=== PATIENT | female | born 1940 | race Caucasian/White ===

== ENCOUNTER 2021-04-21 15:06 | Inpatient (IN) ==
[2021-04-21] MEDS ORDERED: *HR* FentaNYL (PF) 100 MCG/2 ML VIAL IVP ONE (16:07)
[2021-04-21] MEDS ORDERED: Ondansetron 4 MG/2 ML VIAL IVP ONE (16:26)
[2021-04-21] MEDS ORDERED: *HR* HYDROmorphone (PF) 1 MG/ML SYRINGE IVP ONE (18:06)
[2021-04-21 18:10] LABS: Hemoglobin 11.4 g/dL (11.5-15.4); Immature Platelets 6.9 % (1.1-6.1); Mean Corpuscular HGB Conc 33.5 g/dL (31.6-35.5); Mean Corpuscular Volume 95.5 fL (83.0-100.0); Red Blood Count 3.56 M/mcL (3.82-4.97); White Blood Count 6.6 K/mcL (4.3-11.1)
[2021-04-21 18:17] LABS: Bilirubin,Urine Negative (Negative); Blood,Urine Negative (Negative); Clarity,Urine Clear (Clear); Color,Urine Light-Yellow (Yellow); Glucose,Urine (UA) Normal (Normal); Ketones,Urine Negative (Negative); Leukocyte Esterase,Urine Small (Negative); Mucus,Urine Few per lpf (None-Few); Nitrite,Urine Positive (Negative); PH,Urine 6.5 pH Units (5.0-8.0); Protein,Urine Negative (Neg-Trace); RBC,Urine 0-3 per hpf (0-3); Specific Gravity,Urine 1.012 (1.010-1.025); Squamous Epithelial Cell,Urine Few per hpf (None-Few); Urobilinogen,Urine Normal (Normal); WBC,Urine 15-30 per hpf (0-3)
[2021-04-21 18:22] LABS: INR 1.1; Prothrombin Time 12.5 Seconds (9.4-12.1)
[2021-04-21 18:28] LABS: BUN/Creatinine Ratio 25 (6-26); Blood Urea Nitrogen 12 mg/dL (8-23); Calcium 9.2 mg/dL (8.6-10.3); Carbon Dioxide 29 mEq/L (23-29); Chloride 101 mEq/L (98-107); Glucose 95 mg/dL (70-105); Osmolality,Calculated 284 (280-300); Potassium 3.8 mEq/L (3.5-5.1); Sodium 137 mEq/L (136-145); eGFR For African Americans > 60 (> 60); eGFR For Non-African Americans > 60 (> 60)
[2021-04-21] MEDS ORDERED: *HR* Promethazine 25 MG/ML VIAL IM PRN (19:43)
[2021-04-21] MEDS ORDERED: Melatonin 3 MG TABLET PO PRN (19:43)
[2021-04-21] MEDS ORDERED: Naloxone 0.4 MG/ML INJ IVP PRN (19:43)
[2021-04-21] MEDS: Ketorolac 30 MG/ML VIAL IVP PRN (20:38)
[2021-04-21] MEDS: cefTRIAXone 1,000 MG in Water for inj. (sterile) 10 ML IVP SCH (22:31)
[2021-04-22 00:24] LABS: Adenovirus Not Detected (Not Detect); Bordetella Pertussis Not Detected (Not Detect); Chlamydophila pneumoniae Not Detected (Not Detect); Coronavirus 229E Not Detected (Not Detect); Coronavirus HKU1 Not Detected (Not Detect); Coronavirus NL63 Not Detected (Not Detect); Coronavirus OC43 Not Detected (Not Detect); Human Metapneumovirus Not Detected (Not Detect); Human Rhinovirus/Enterovirus Not Detected (Not Detect); Influenza A Subtype 2009 H1 Not Detected (Not Detect); Influenza B Not Detected (Not Detect); Mycoplasma pneumoniae Not Detected (Not Detect); Parainfluenza Virus 1 Not Detected (Not Detect); Parainfluenza Virus 2 Not Detected (Not Detect); Parainfluenza Virus 3 Not Detected (Not Detect); Parainfluenza Virus 4 Not Detected (Not Detect); Respiratory Syncytial Virus Not Detected (Not Detect); SARS-CoV-2 Not Detected (Not Detect)
[2021-04-22] MEDS: Ketorolac 30 MG/ML VIAL IVP PRN ×3 (02:48→17:59)
[2021-04-22 06:47] LABS: Basophils % 0.6 %; Eosinophils # 0.1 K/mcL (0.0-0.6); Eosinophils % 1.7 %; Hematocrit 31.4 % (35.3-44.9); Hemoglobin 10.5 g/dL (11.5-15.4); Immature Granulocytes % 0.4 % (0-4); Lymphocytes # 1.1 K/mcL (0.6-4.6); Lymphocytes % 15.2 %; Mean Corpuscular HGB Conc 33.4 g/dL (31.6-35.5); Mean Corpuscular Hemoglobin 31.7 pg (28.0-33.3); Mean Corpuscular Volume 94.9 fL (83.0-100.0); Mean Platelet Volume 11.3 fL (9.4-12.4); Monocytes # 0.7 K/mcL (0.0-1.3); Monocytes % 10.1 %; Platelet Count 171 K/mcL (140-400); Red Blood Count 3.31 M/mcL (3.82-4.97); Red Cell Distribution Width 11.9 % (11.5-14.5); White Blood Count 6.9 K/mcL (4.3-11.1)
[2021-04-22 07:09] LABS: BUN/Creatinine Ratio 30 (6-26); Blood Urea Nitrogen 13 mg/dL (8-23); Calcium 8.4 mg/dL (8.6-10.3); Carbon Dioxide 28 mEq/L (23-29); Chloride 98 mEq/L (98-107); Glucose 107 mg/dL (70-105); Osmolality,Calculated 279 (280-300); Potassium 3.7 mEq/L (3.5-5.1); Sodium 134 mEq/L (136-145); eGFR For African Americans > 60 (> 60); eGFR For Non-African Americans > 60 (> 60)
[2021-04-22] MEDS ORDERED: D5% in Water 1,000 ML IVC PRN (07:58)
[2021-04-22] MEDS ORDERED: Dextrose Gel 15 GM/37.5 ML TUBE PO PRN ×2 (07:58)
[2021-04-22] MEDS ORDERED: *HR* Dextrose 50 % in Water (Vial) 50 ML VIAL IVP PRN (07:58)
[2021-04-22] MEDS: cefTRIAXone 1,000 MG in Water for inj. (sterile) 10 ML IVP SCH (08:07)
[2021-04-22] MEDS: Aspirin Enteric Coated 81 MG Tablet PO SCH (10:33)
[2021-04-22] MEDS: Ondansetron 4 MG/2 ML VIAL IVP PRN ×2 (11:58→20:17)
[2021-04-22] MEDS: Gabapentin 300 MG CAPSULE PO SCH (20:17)
[2021-04-22] MEDS: Lactobacillus 1 EACH CAP.SPRINK PO SCH (20:17)
[2021-04-23 06:00] LABS: Hematocrit 32.1 % (35.3-44.9); Hemoglobin 10.5 g/dL (11.5-15.4); Mean Corpuscular HGB Conc 32.7 g/dL (31.6-35.5); Mean Corpuscular Hemoglobin 31.3 pg (28.0-33.3); Mean Corpuscular Volume 95.8 fL (83.0-100.0); Mean Platelet Volume 11.4 fL (9.4-12.4); Platelet Count 163 K/mcL (140-400); Red Blood Count 3.35 M/mcL (3.82-4.97); Red Cell Distribution Width 11.8 % (11.5-14.5); White Blood Count 10.2 K/mcL (4.3-11.1)
[2021-04-23 06:28] LABS: % Iron Saturation 7 % (15-50); BUN/Creatinine Ratio 31 (6-26); Blood Urea Nitrogen 15 mg/dL (8-23); Calcium 8.5 mg/dL (8.6-10.3); Carbon Dioxide 27 mEq/L (23-29); Chloride 97 mEq/L (98-107); Glucose 107 mg/dL (70-105); Iron 21 mcg/dL (50-170); Magnesium 2.2 mg/dL (1.6-2.6); Osmolality,Calculated 277 (280-300); Phosphorous 3.1 mg/dL (2.7-4.5); Potassium 3.5 mEq/L (3.5-5.1); Sodium 133 mEq/L (136-145); Transferrin 212 mg/dL (203-362); eGFR For African Americans > 60 (> 60); eGFR For Non-African Americans > 60 (> 60)
[2021-04-23 06:39] LABS: Ferritin 493 ng/mL (10-120)
[2021-04-23 06:46] LABS: Folate 19.1 ng/mL (3.0-16.0)
[2021-04-23] MEDS ORDERED: Iron Sucrose Complex 400 MG in 0.9 % Sodium Chloride 250 ML IVPB ONE (07:51)
[2021-04-23] MEDS: cefTRIAXone 1,000 MG in Water for inj. (sterile) 10 ML IVP SCH (08:44)
[2021-04-23] MEDS: Vitamin B Complex/Vit C/Vit E 1 EACH TABLET PO SCH (08:46)
[2021-04-23] MEDS: hydrOXYzine pamoate 25 MG CAPSULE PO SCH (08:46)
[2021-04-23] MEDS: Gabapentin 300 MG CAPSULE PO SCH ×2 (08:46→22:52)
[2021-04-23] MEDS: Lactobacillus 1 EACH CAP.SPRINK PO SCH ×2 (08:47→22:52)
[2021-04-23] MEDS: Calcium Gluconate 1gm/50mL 1 GM/50 ML BAG IVPB SCH (08:47)
[2021-04-23] MEDS ORDERED: Povidone-Iodine 45 ML, Sodium Chloride IRRigation 1,000 ML IR ONE (12:30)
[2021-04-23] MEDS ORDERED: TOTAL JOINT MIXTURE (100ML) INTRAART ONE (12:30)
[2021-04-23] MEDS ORDERED: *HR* FentaNYL (PF) 100 MCG/2 ML VIAL ONE (12:37)
[2021-04-23] MEDS ORDERED: *HR* Propofol 200 MG/20 ML VIAL IVP ONE (12:37)
[2021-04-23] MEDS ORDERED: *HR* Midazolam HCl 2 MG/2 ML VIAL ONE (12:37)
[2021-04-23] MEDS: Aspirin Enteric Coated 81 MG Tablet PO SCH ×2 (12:39)
[2021-04-23] MEDS ORDERED: *HR* FentaNYL (PF) 100 MCG/2 ML VIAL IVP PRN (12:47)
[2021-04-23] MEDS ORDERED: Ondansetron 4 MG/2 ML VIAL IVP PRN (12:47)
[2021-04-23] MEDS ORDERED: Albuterol 2.5 MG/3 ML NEBULIZER IH PRN (12:47)
[2021-04-23] MEDS ORDERED: Naloxone 0.4 MG/ML INJ IVP PRN (12:47)
[2021-04-23] MEDS ORDERED: *HR* HYDROmorphone (PF) 1 MG/ML SYRINGE IVP PRN (12:47)
[2021-04-23] MEDS ORDERED: Nitroglycerin 0.4 MG TAB.SUBL SL PRN (12:47)
[2021-04-23] MEDS ORDERED: Acetaminophen IV 1,000 MG/100 ML BAG IVPB ONE (12:58)
[2021-04-23] MEDS ORDERED: Lidocaine -MPF 2% 2 ML VIAL ONE (13:12)
[2021-04-23] MEDS ORDERED: Ondansetron 4 MG/2 ML VIAL ONE (13:12)
[2021-04-23] MEDS ORDERED: Lidocaine HCL 4 ML Topical Solution (Laryng-O-Jet Kit Sterile Pak) TP ONE (13:12)
[2021-04-23] MEDS ORDERED: *HR* Rocuronium Bromide 50 MG/5 ML VIAL ONE (13:12)
[2021-04-23] MEDS ORDERED: Heparin 1,000 UNITS/500 mL 500 ML ONE (14:38)
[2021-04-23] MEDS ORDERED: Sugammadex Sodium 200 MG/2 ML VIAL IV ONE (14:46)
[2021-04-23] MEDS ORDERED: Ringers Solution, Lactated 500 ML ONE (15:30)
[2021-04-24] MEDS: CeFAZolin 2 GM/120 ML BAG IVPB SCH ×3 (00:38→16:31)
[2021-04-24 03:06] LABS: Hematocrit 28.9 % (35.3-44.9); Hemoglobin 9.5 g/dL (11.5-15.4); Immature Platelets 8.1 % (1.1-6.1); Mean Corpuscular HGB Conc 32.9 g/dL (31.6-35.5); Mean Corpuscular Hemoglobin 31.4 pg (28.0-33.3); Mean Corpuscular Volume 95.4 fL (83.0-100.0); Mean Platelet Volume 11.2 fL (9.4-12.4); Red Blood Count 3.03 M/mcL (3.82-4.97); Red Cell Distribution Width 11.8 % (11.5-14.5); White Blood Count 9.1 K/mcL (4.3-11.1)
[2021-04-24 03:26] LABS: BUN/Creatinine Ratio 23 (6-26); Blood Urea Nitrogen 10 mg/dL (8-23); Calcium 8.4 mg/dL (8.6-10.3); Carbon Dioxide 27 mEq/L (23-29); Chloride 99 mEq/L (98-107); Glucose 128 mg/dL (70-105); Magnesium 2.2 mg/dL (1.6-2.6); Osmolality,Calculated 277 (280-300); Phosphorous 2.9 mg/dL (2.7-4.5); Potassium 4.3 mEq/L (3.5-5.1); Sodium 133 mEq/L (136-145); eGFR For African Americans > 60 (> 60); eGFR For Non-African Americans > 60 (> 60)
[2021-04-24] MEDS ORDERED: Ketorolac 15 MG/ML VIAL IM ONE (05:07)
[2021-04-24] MEDS: Gabapentin 300 MG CAPSULE PO SCH ×2 (07:45→20:05)
[2021-04-24] MEDS: Lactobacillus 1 EACH CAP.SPRINK PO SCH ×2 (07:45→20:05)
[2021-04-24] MEDS: Vitamin B Complex/Vit C/Vit E 1 EACH TABLET PO SCH (07:45)
[2021-04-24] MEDS: Aspirin Enteric Coated 81 MG Tablet PO SCH (07:45)
[2021-04-24] MEDS: hydrOXYzine pamoate 25 MG CAPSULE PO SCH (07:46)
[2021-04-24] MEDS: Ondansetron 4 MG/2 ML VIAL IVP PRN (07:48)
[2021-04-24] MEDS ORDERED: Iron Sucrose Complex 400 MG in 0.9 % Sodium Chloride 250 ML IVPB ONE (07:52)
[2021-04-24] MEDS: *HR* HYDROcodone/Acet 10/325 mg TABLET PO PRN ×2 (15:08→20:04)
[2021-04-24] MEDS: *HR* Rivaroxaban 10 MG TABLET PO SCH (16:30)
[2021-04-24] MEDS ORDERED: Cefdinir 300 MG CAPSULE PO SCH (21:00)
[2021-04-25] MEDS: CeFAZolin 2 GM/120 ML BAG IVPB SCH (00:07)
[2021-04-25] MEDS: *HR* HYDROcodone/Acet 10/325 mg TABLET PO PRN ×4 (00:13→22:44)
[2021-04-25] MEDS ORDERED: Acetaminophen IV 1,000 MG/100 ML BAG IVPB ONE (00:52)
[2021-04-25 01:57] LABS: Hematocrit 30.2 % (35.3-44.9); Hemoglobin 10.2 g/dL (11.5-15.4); Mean Corpuscular HGB Conc 33.8 g/dL (31.6-35.5); Mean Corpuscular Hemoglobin 32.4 pg (28.0-33.3); Mean Corpuscular Volume 95.9 fL (83.0-100.0); Mean Platelet Volume 11.2 fL (9.4-12.4); Platelet Count 157 K/mcL (140-400); Red Blood Count 3.15 M/mcL (3.82-4.97); Red Cell Distribution Width 11.8 % (11.5-14.5); White Blood Count 9.5 K/mcL (4.3-11.1)
[2021-04-25 02:19] LABS: BUN/Creatinine Ratio 24 (6-26); Blood Urea Nitrogen 11 mg/dL (8-23); Carbon Dioxide 28 mEq/L (23-29); Chloride 97 mEq/L (98-107); Potassium 3.4 mEq/L (3.5-5.1); Sodium 134 mEq/L (136-145); eGFR For African Americans > 60 (> 60)
[2021-04-25 02:20] LABS: Calcium 8.8 mg/dL (8.6-10.3); Glucose 132 mg/dL (70-105); Osmolality,Calculated 279 (280-300); Phosphorous 2.8 mg/dL (2.7-4.5); eGFR For Non-African Americans > 60 (> 60)
[2021-04-25] MEDS: Lactobacillus 1 EACH CAP.SPRINK PO SCH ×2 (08:22→20:50)
[2021-04-25] MEDS: Gabapentin 300 MG CAPSULE PO SCH ×2 (08:22→20:50)
[2021-04-25] MEDS: Vitamin B Complex/Vit C/Vit E 1 EACH TABLET PO SCH (08:22)
[2021-04-25] MEDS: hydrOXYzine pamoate 25 MG CAPSULE PO SCH (08:22)
[2021-04-25] MEDS: Aspirin Enteric Coated 81 MG Tablet PO SCH (08:23)
[2021-04-25] MEDS: *HR* Rivaroxaban 10 MG TABLET PO SCH (18:39)
[2021-04-25] MEDS: Cefdinir 300 MG CAPSULE PO SCH (20:50)
[2021-04-26 01:48] LABS: Hematocrit 27.7 % (35.3-44.9); Hemoglobin 9.3 g/dL (11.5-15.4); Mean Corpuscular HGB Conc 33.6 g/dL (31.6-35.5); Mean Corpuscular Hemoglobin 31.7 pg (28.0-33.3); Mean Corpuscular Volume 94.5 fL (83.0-100.0); Mean Platelet Volume 11.5 fL (9.4-12.4); Platelet Count 174 K/mcL (140-400); Red Blood Count 2.93 M/mcL (3.82-4.97); Red Cell Distribution Width 11.6 % (11.5-14.5); White Blood Count 7.8 K/mcL (4.3-11.1)
[2021-04-26 02:11] LABS: BUN/Creatinine Ratio 22 (6-26); Blood Urea Nitrogen 7 mg/dL (8-23); Calcium 8.5 mg/dL (8.6-10.3); Carbon Dioxide 29 mEq/L (23-29); Chloride 97 mEq/L (98-107); Glucose 121 mg/dL (70-105); Osmolality,Calculated 277 (280-300); Phosphorous 2.4 mg/dL (2.7-4.5); Potassium 3.7 mEq/L (3.5-5.1); Sodium 134 mEq/L (136-145); eGFR For African Americans > 60 (> 60); eGFR For Non-African Americans > 60 (> 60)
[2021-04-26] MEDS: *HR* HYDROcodone/Acet 10/325 mg TABLET PO PRN ×2 (02:44→07:29)
[2021-04-26] MEDS: Calcium Gluconate 1gm/50mL 1 GM/50 ML BAG IVPB SCH (03:24)
[2021-04-26] MEDS ORDERED: Calcium Gluconate 1gm/50mL 1 GM/50 ML BAG IVPB SCH (09:00)
[2021-04-26] MEDS: Gabapentin 300 MG CAPSULE PO SCH (11:21)
[2021-04-26] MEDS: Lactobacillus 1 EACH CAP.SPRINK PO SCH (11:21)
[2021-04-26] MEDS: Aspirin Enteric Coated 81 MG Tablet PO SCH (11:21)
[2021-04-26] MEDS: Cefdinir 300 MG CAPSULE PO SCH (11:21)
[2021-04-26] MEDS: hydrOXYzine pamoate 25 MG CAPSULE PO SCH (11:22)
[2021-04-26] MEDS: Vitamin B Complex/Vit C/Vit E 1 EACH TABLET PO SCH (11:22)
[2021-04-26] MEDS ORDERED: *HR* Rivaroxaban 15 MG TABLET PO SCH (11:30)
[2021-04-26 15:01] VITALS: BP 160/77; PULSE 94; TEMP 99.4; O2SAT 94
[2021-04-26 16:07] LABS: Influenza A PCR Negative (Negative); Influenza B PCR Negative (Negative); Resp. Syncytial Virus PCR Negative (Negative); SARS-CoV-2 by PCR (In House) Negative (Negative)
== END 2021-04-26 18:01 | disposition other institution (70) | DRG 481 ==
LOC: 3NENU 15:06 → EMEROOARM 15:06 → SUATTDRO 19:19 → 3NENU 20:19
PROVIDERS: ADMIT Internal Medicine; ATTEND Internal Medicine

== ENCOUNTER 2021-05-07 10:51 | Inpatient (IN) ==
[2021-05-07] MEDS ORDERED: 0.9 % Sodium Chloride 1,000 ML IVC ONE (10:59)
[2021-05-07 11:48] LABS: Mean Corpuscular Hemoglobin 32.2 pg (28.0-33.3)
[2021-05-07 11:49] LABS: Hematocrit 16.8 % (35.3-44.9); Mean Corpuscular HGB Conc 32.7 g/dL (31.6-35.5); Mean Corpuscular Volume 98.2 fL (83.0-100.0); Mean Platelet Volume 11.2 fL (9.4-12.4); Platelet Count 283 K/mcL (140-400); Red Blood Count 1.71 M/mcL (3.82-4.97); Red Cell Distribution Width 13.3 % (11.5-14.5); White Blood Count 16.2 K/mcL (4.3-11.1)
[2021-05-07 11:52] LABS: Hemoglobin 5.5 g/dL (11.5-15.4)
[2021-05-07 12:06] LABS: Lymphocytes # 1.6 K/mcL (0.6-4.6); Neutrophils # 13.6 K/mcL (1.6-8.9)
[2021-05-07 12:07] LABS: Anisocytosis 1+ (Not Present); Platelet Estimate Normal (Normal)
[2021-05-07 12:16] LABS: Bilirubin,Urine Negative (Negative); Blood,Urine Negative (Negative); Clarity,Urine Clear (Clear); Color,Urine Light-Yellow (Yellow); Glucose,Urine (UA) Normal (Normal); Ketones,Urine Trace mg/dL (Negative); Leukocyte Esterase,Urine Negative (Negative); Nitrite,Urine Negative (Negative); PH,Urine 5.5 pH Units (5.0-8.0); Protein,Urine Negative (Neg-Trace); Specific Gravity,Urine 1.022 (1.010-1.025); Urobilinogen,Urine Normal (Normal)
[2021-05-07 13:00] LABS: Alanine Aminotransferase 12 Units/L (7-52); Albumin 3.6 g/dL (3.5-5.7); Albumin/Globulin Ratio 1.4 (1.1-2.2); Alkaline Phosphatase 60 Units/L (34-104); Aspartate Amino Transferase 22 Units/L (13-39); BUN/Creatinine Ratio 49 (6-26); Bilirubin,Total 0.6 mg/dL (0.3-1.0); Blood Urea Nitrogen 25 mg/dL (8-23); Calcium 8.8 mg/dL (8.6-10.3); Carbon Dioxide 20 mEq/L (23-29); Chloride 101 mEq/L (98-107); Creatine Kinase 82 Units/L (30-223); Globulin 2.5 g/dL (2.4-3.5); Glucose 146 mg/dL (70-105); Osmolality,Calculated 287 (280-300); Sodium 135 mEq/L (136-145); Total Protein 6.1 g/dL (6.4-8.9); Troponin I < 0.03 ng/mL (< 0.04); eGFR For African Americans > 60 (> 60); eGFR For Non-African Americans > 60 (> 60)
[2021-05-07] MEDS ORDERED: 0.9 % Sodium Chloride 250 ML ONE (13:14)
[2021-05-07] MEDS ORDERED: Pantoprazole 40 MG VIAL IVP ONE (13:35)
[2021-05-07] MEDS ORDERED: Naloxone 0.4 MG/ML INJ IVP PRN (13:55)
[2021-05-07] MEDS ORDERED: Ondansetron ODT 4 MG TAB.RAPDIS SL PRN (13:55)
[2021-05-07] MEDS ORDERED: Acetaminophen 325 MG TABLET PO PRN (14:00)
[2021-05-07] MEDS ORDERED: D5% in Water 1,000 ML IVC PRN (14:15)
[2021-05-07] MEDS ORDERED: Dextrose Gel 15 GM/37.5 ML TUBE PO PRN ×2 (14:15)
[2021-05-07] MEDS ORDERED: *HR* Dextrose 50 % in Water (Vial) 50 ML VIAL IVP PRN (14:15)
[2021-05-07 16:23] LABS: Folate > 22.3 ng/mL (3.0-16.0); Vitamin B12 770 pg/mL (250-1100)
[2021-05-07] MEDS ORDERED: SODIUM CHLORIDE/NAHCO3/KCL/PEG 4,000 ML SOLN.RECON PO ONE (17:00)
[2021-05-07] MEDS: Ringers Solution, Lactated 1,000 ML IVC SCH (17:42)
[2021-05-07] MEDS: Pantoprazole 40 MG VIAL IVP SCH (17:42)
[2021-05-07] MEDS: Insulin LISPRO 300 UNITS/3 ML VIAL SUBQ SCH ×2 (18:05→20:02)
[2021-05-07 19:15] LABS: Hematocrit 21.8 % (35.3-44.9)
[2021-05-07 19:19] LABS: Hemoglobin 7.3 g/dL (11.5-15.4)
[2021-05-07 19:31] LABS: INR 1.5; Prothrombin Time 16.6 Seconds (9.4-12.1)
[2021-05-07 19:34] LABS: Activated Partial Thrombo Time 28.8 Seconds (26.0-36.0)
[2021-05-07] MEDS: *HR* HYDROcodone/Acet 5/325 mg TABLET PO PRN (23:01)
[2021-05-07 23:20] LABS: Hemoglobin 6.8 g/dL (11.5-15.4)
[2021-05-08] MEDS: Insulin LISPRO 300 UNITS/3 ML VIAL SUBQ SCH ×5 (00:36→21:13)
[2021-05-08] MEDS: Ringers Solution, Lactated 1,000 ML IVC SCH ×2 (02:31→10:50)
[2021-05-08 03:20] LABS: BUN/Creatinine Ratio 72 (6-26); Blood Urea Nitrogen 18 mg/dL (8-23); Calcium 7.6 mg/dL (8.6-10.3); Carbon Dioxide 22 mEq/L (23-29); Chloride 105 mEq/L (98-107); Glucose 97 mg/dL (70-105); Osmolality,Calculated 278 (280-300); Potassium 3.4 mEq/L (3.5-5.1); Sodium 133 mEq/L (136-145); eGFR For African Americans > 60 (> 60); eGFR For Non-African Americans > 60 (> 60)
[2021-05-08] MEDS: *HR* HYDROcodone/Acet 5/325 mg TABLET PO PRN ×2 (04:51→20:10)
[2021-05-08] MEDS: Pantoprazole 40 MG VIAL IVP SCH ×2 (04:52→17:48)
[2021-05-08] MEDS ORDERED: Potassium Chloride 40 MEQ, Lidocaine 1% 2 ML in 0.9 % Sodium Chloride 500 ML IVPB ONE (07:36)
[2021-05-08] MEDS ORDERED: Calcium Gluconate 1gm/50mL 1 GM/50 ML BAG IVPB ONE (07:37)
[2021-05-08] MEDS: hydrOXYzine pamoate 25 MG CAPSULE PO SCH (08:07)
[2021-05-08] MEDS ORDERED: Pantoprazole 40 MG VIAL IVP SCH (09:00)
[2021-05-08 09:06] LABS: Basophils # 0.1 K/mcL (0.0-0.2); Basophils % 0.5 %; Eosinophils % 0.2 %; Hematocrit 18.5 % (35.3-44.9); Hemoglobin 6.4 g/dL (11.5-15.4); Immature Granulocytes % 2.8 % (0-4); Lymphocytes # 1.8 K/mcL (0.6-4.6); Lymphocytes % 14.3 %; Mean Corpuscular HGB Conc 34.6 g/dL (31.6-35.5); Mean Corpuscular Volume 92.5 fL (83.0-100.0); Mean Platelet Volume 10.9 fL (9.4-12.4); Monocytes # 1.2 K/mcL (0.0-1.3); Monocytes % 9.5 %; Neutrophils # 9.3 K/mcL (1.6-8.9); Nucleated Red Blood Cells 0.4 /100 WBC (0); Platelet Count 215 K/mcL (140-400); Red Cell Distribution Width 15.2 % (11.5-14.5); Segmented Neutrophils % 72.7 %; White Blood Count 12.8 K/mcL (4.3-11.1)
[2021-05-08] MEDS ORDERED: 0.9 % Sodium Chloride 250 ML ONE ×2 (12:11→21:10)
[2021-05-08] MEDS ORDERED: *HR* Propofol 200 MG/20 ML VIAL IVP ONE ×3 (12:43→13:54)
[2021-05-08] MEDS ORDERED: Lidocaine -MPF 2% 2 ML VIAL ONE (12:47)
[2021-05-08] MEDS ORDERED: Ondansetron 4 MG/2 ML VIAL ONE (13:59)
[2021-05-08] MEDS ORDERED: SODIUM CHLORIDE/NAHCO3/KCL/PEG 4,000 ML SOLN.RECON PO ONE (17:00)
[2021-05-08 17:54] LABS: Hematocrit 19.1 % (35.3-44.9); Hemoglobin 6.6 g/dL (11.5-15.4)
[2021-05-09] MEDS: Insulin LISPRO 300 UNITS/3 ML VIAL SUBQ SCH ×6 (01:00→21:54)
[2021-05-09 05:42] LABS: Hematocrit 21.1 % (35.3-44.9); Hemoglobin 7.3 g/dL (11.5-15.4); Mean Corpuscular HGB Conc 34.6 g/dL (31.6-35.5); Mean Corpuscular Hemoglobin 30.8 pg (28.0-33.3); Mean Platelet Volume 10.4 fL (9.4-12.4); Platelet Count 168 K/mcL (140-400); Red Blood Count 2.37 M/mcL (3.82-4.97); Red Cell Distribution Width 15.3 % (11.5-14.5)
[2021-05-09] MEDS: Ringers Solution, Lactated 1,000 ML IVC SCH ×2 (05:55→05:56)
[2021-05-09 06:01] LABS: BUN/Creatinine Ratio 35 (6-26); Blood Urea Nitrogen 9 mg/dL (8-23); Calcium 7.5 mg/dL (8.6-10.3); Carbon Dioxide 25 mEq/L (23-29); Chloride 100 mEq/L (98-107); Glucose 102 mg/dL (70-105); Osmolality,Calculated 273 (280-300); Potassium 2.8 mEq/L (3.5-5.1); Sodium 132 mEq/L (136-145); eGFR For African Americans > 60 (> 60); eGFR For Non-African Americans > 60 (> 60)
[2021-05-09] MEDS: Pantoprazole 40 MG VIAL IVP SCH ×2 (06:11→18:09)
[2021-05-09] MEDS ORDERED: Potassium Chloride Elixir 20 MEQ/15 ML UDC PO ONE (07:18)
[2021-05-09] MEDS ORDERED: Potassium Chloride 20 MEQ, Lidocaine 1% 2 ML in 0.9 % Sodium Chloride 250 ML IVPB ONE (07:18)
[2021-05-09] MEDS ORDERED: 0.9 % Sodium Chloride 1,000 ML IVC SCH ×2 (07:30)
[2021-05-09 07:58] LABS: Magnesium 1.6 mg/dL (1.6-2.6)
[2021-05-09] MEDS: hydrOXYzine pamoate 25 MG CAPSULE PO SCH (08:53)
[2021-05-09 17:20] LABS: Hematocrit 21.8 % (35.3-44.9); Hemoglobin 7.5 g/dL (11.5-15.4)
[2021-05-09] MEDS: *HR* HYDROcodone/Acet 5/325 mg TABLET PO PRN (18:09)
[2021-05-10] MEDS: *HR* HYDROcodone/Acet 5/325 mg TABLET PO PRN ×2 (01:43→21:39)
[2021-05-10 02:26] LABS: Hemoglobin 6.8 g/dL (11.5-15.4); Mean Corpuscular Hemoglobin 31.3 pg (28.0-33.3); Mean Corpuscular Volume 92.2 fL (83.0-100.0); Mean Platelet Volume 10.8 fL (9.4-12.4); Platelet Count 192 K/mcL (140-400); Red Blood Count 2.17 M/mcL (3.82-4.97); White Blood Count 7.9 K/mcL (4.3-11.1)
[2021-05-10 02:40] LABS: BUN/Creatinine Ratio 39 (6-26); Blood Urea Nitrogen 9 mg/dL (8-23); Calcium 7.9 mg/dL (8.6-10.3); Carbon Dioxide 26 mEq/L (23-29); Chloride 102 mEq/L (98-107); Glucose 109 mg/dL (70-105); Osmolality,Calculated 279 (280-300); Sodium 135 mEq/L (136-145); eGFR For African Americans > 60 (> 60); eGFR For Non-African Americans > 60 (> 60)
[2021-05-10] MEDS ORDERED: 0.9 % Sodium Chloride 250 ML IVC SCH (03:00)
[2021-05-10] MEDS: Pantoprazole 40 MG VIAL IVP SCH ×2 (05:57→18:02)
[2021-05-10 06:55] LABS: Hematocrit 23.6 % (35.3-44.9)
[2021-05-10] MEDS ORDERED: Lidocaine -MPF 2% 5 ML VIAL SQ ONE (09:02)
[2021-05-10] MEDS ORDERED: *HR* Propofol 200 MG/20 ML VIAL IVP ONE (09:02)
[2021-05-10] MEDS: hydrOXYzine pamoate 25 MG CAPSULE PO SCH (09:37)
[2021-05-10] MEDS: Insulin LISPRO 300 UNITS/3 ML VIAL SUBQ SCH ×4 (09:37→21:11)
[2021-05-10 13:12] LABS: Hematocrit 26.3 % (35.3-44.9); Hemoglobin 8.7 g/dL (11.5-15.4)
[2021-05-10] MEDS ORDERED: Potassium Chloride 40 MEQ, Lidocaine 1% 2 ML in 0.9 % Sodium Chloride 500 ML IVPB ONE (14:10)
[2021-05-10 15:56] LABS: Estimated Average Glucose 103 mg/dl; Hemoglobin A1C 5.2 %
[2021-05-10 22:03] LABS: Hematocrit 26.5 % (35.3-44.9); Hemoglobin 8.9 g/dL (11.5-15.4)
[2021-05-11 01:27] LABS: Basophils # 0.1 K/mcL (0.0-0.2); Basophils % 0.5 %; Eosinophils # 0.1 K/mcL (0.0-0.6); Hematocrit 24.6 % (35.3-44.9); Hemoglobin 8.2 g/dL (11.5-15.4); Immature Granulocytes % 1.5 % (0-4); Lymphocytes # 1.5 K/mcL (0.6-4.6); Lymphocytes % 14.7 %; Mean Corpuscular HGB Conc 33.3 g/dL (31.6-35.5); Mean Corpuscular Hemoglobin 30.7 pg (28.0-33.3); Mean Corpuscular Volume 92.1 fL (83.0-100.0); Mean Platelet Volume 10.4 fL (9.4-12.4); Monocytes # 1.2 K/mcL (0.0-1.3); Monocytes % 11.8 %; Nucleated Red Blood Cells 0.2 /100 WBC (0); Platelet Count 225 K/mcL (140-400); Red Blood Count 2.67 M/mcL (3.82-4.97); Red Cell Distribution Width 16.7 % (11.5-14.5); Segmented Neutrophils % 70.5 %; White Blood Count 9.9 K/mcL (4.3-11.1)
[2021-05-11 01:46] LABS: BUN/Creatinine Ratio 22 (6-26); Blood Urea Nitrogen 5 mg/dL (8-23); Calcium 8.2 mg/dL (8.6-10.3); Carbon Dioxide 27 mEq/L (23-29); Chloride 99 mEq/L (98-107); Glucose 100 mg/dL (70-105); Osmolality,Calculated 275 (280-300); Sodium 134 mEq/L (136-145); eGFR For African Americans > 60 (> 60); eGFR For Non-African Americans > 60 (> 60)
[2021-05-11] MEDS: Pantoprazole 40 MG VIAL IVP SCH ×2 (06:17→17:23)
[2021-05-11] MEDS: hydrOXYzine pamoate 25 MG CAPSULE PO SCH (09:54)
[2021-05-11] MEDS: Insulin LISPRO 300 UNITS/3 ML VIAL SUBQ SCH (10:03)
[2021-05-11] MEDS ORDERED: Potassium Chloride 40 MEQ, Lidocaine 1% 2 ML in 0.9 % Sodium Chloride 500 ML IVPB ONE (13:27)
[2021-05-11] MEDS ORDERED: *HR* Propofol 200 MG/20 ML VIAL IVP ONE ×3 (13:33→14:06)
[2021-05-11] MEDS ORDERED: Lidocaine -MPF 2% 5 ML VIAL ONE (13:33)
[2021-05-11 15:12] LABS: Magnesium 1.6 mg/dL (1.6-2.6)
[2021-05-11] MEDS: *HR* HYDROcodone/Acet 5/325 mg TABLET PO PRN (17:23)
[2021-05-11 18:38] LABS: Hematocrit 25.3 % (35.3-44.9); Hemoglobin 8.7 g/dL (11.5-15.4)
[2021-05-12] MEDS: *HR* HYDROcodone/Acet 5/325 mg TABLET PO PRN ×2 (00:33→17:01)
[2021-05-12 01:48] LABS: Basophils % 0.4 %; Eosinophils # 0.1 K/mcL (0.0-0.6); Eosinophils % 1.1 %; Hematocrit 24.7 % (35.3-44.9); Hemoglobin 8.1 g/dL (11.5-15.4); Immature Granulocytes % 0.6 % (0-4); Lymphocytes # 1.2 K/mcL (0.6-4.6); Lymphocytes % 15.2 %; Mean Corpuscular HGB Conc 32.8 g/dL (31.6-35.5); Mean Corpuscular Hemoglobin 30.8 pg (28.0-33.3); Mean Corpuscular Volume 93.9 fL (83.0-100.0); Mean Platelet Volume 10.6 fL (9.4-12.4); Neutrophils # 5.5 K/mcL (1.6-8.9); Platelet Count 254 K/mcL (140-400); Red Blood Count 2.63 M/mcL (3.82-4.97); Red Cell Distribution Width 17.1 % (11.5-14.5); Segmented Neutrophils % 69.7 %; White Blood Count 7.9 K/mcL (4.3-11.1)
[2021-05-12 02:07] LABS: BUN/Creatinine Ratio 14 (6-26); Blood Urea Nitrogen 6 mg/dL (8-23); Calcium 8.2 mg/dL (8.6-10.3); Carbon Dioxide 28 mEq/L (23-29); Chloride 98 mEq/L (98-107); Glucose 110 mg/dL (70-105); Osmolality,Calculated 276 (280-300); Potassium 3.6 mEq/L (3.5-5.1); Sodium 134 mEq/L (136-145); eGFR For African Americans > 60 (> 60); eGFR For Non-African Americans > 60 (> 60)
[2021-05-12] MEDS: Pantoprazole 40 MG VIAL IVP SCH ×2 (06:06→16:55)
[2021-05-12] MEDS: hydrOXYzine pamoate 25 MG CAPSULE PO SCH (09:00)
[2021-05-12 14:43] LABS: Basophils % 0.3 %; Eosinophils # 0.1 K/mcL (0.0-0.6); Hematocrit 24.7 % (35.3-44.9); Hemoglobin 8.1 g/dL (11.5-15.4); Immature Granulocytes % 0.6 % (0-4); Lymphocytes % 14.8 %; Mean Corpuscular HGB Conc 32.8 g/dL (31.6-35.5); Mean Corpuscular Hemoglobin 31.2 pg (28.0-33.3); Mean Platelet Volume 10.9 fL (9.4-12.4); Monocytes % 14.2 %; Neutrophils # 4.8 K/mcL (1.6-8.9); Platelet Count 253 K/mcL (140-400); Segmented Neutrophils % 69.1 %
[2021-05-12 15:29] LABS: BUN/Creatinine Ratio 15 (6-26); Blood Urea Nitrogen 6 mg/dL (8-23); Calcium 8.4 mg/dL (8.6-10.3); Carbon Dioxide 29 mEq/L (23-29); Chloride 100 mEq/L (98-107); Glucose 148 mg/dL (70-105); Osmolality,Calculated 276 (280-300); Potassium 4.6 mEq/L (3.5-5.1); Sodium 133 mEq/L (136-145); eGFR For African Americans > 60 (> 60); eGFR For Non-African Americans > 60 (> 60)
[2021-05-12 23:52] VITALS: O2SAT 97
[2021-05-13] MEDS: Pantoprazole 40 MG VIAL IVP SCH (06:32)
[2021-05-13 08:00] VITALS: BP 134/70; PULSE 80; TEMP 97.8
[2021-05-13] MEDS: hydrOXYzine pamoate 25 MG CAPSULE PO SCH (09:12)
[2021-05-13] MEDS: *HR* HYDROcodone/Acet 5/325 mg TABLET PO PRN (09:30)
== END 2021-05-13 11:41 | disposition home or self-care (01) | DRG 378 ==
LOC: EMEROOARM 10:51 → 2ANU 10:51 → SUATTDRO 05-08 15:15
PROVIDERS: ADMIT Family Medicine; ATTEND Internal Medicine
PROC: ENDOCCB (2021-05-08 08:00)

== ENCOUNTER 2021-07-09 08:49 | Inpatient (IN) ==
[2021-07-09] MEDS ORDERED: *HR* HYDROmorphone (PF) 1 MG/ML SYRINGE IVP ONE (09:58)
[2021-07-09 10:39] LABS: Basophils % 0.2 %; Eosinophils % 0.1 %; Hematocrit 37.7 % (35.3-44.9); Hemoglobin 12.4 g/dL (11.5-15.4); Immature Granulocytes % 0.5 % (0-4); Lymphocytes % 7.8 %; Mean Corpuscular HGB Conc 32.9 g/dL (31.6-35.5); Mean Corpuscular Volume 91.3 fL (83.0-100.0); Mean Platelet Volume 11.3 fL (9.4-12.4); Monocytes # 0.8 K/mcL (0.0-1.3); Monocytes % 6.2 %; Neutrophils # 10.6 K/mcL (1.6-8.9); Platelet Count 208 K/mcL (140-400); Red Blood Count 4.13 M/mcL (3.82-4.97); Red Cell Distribution Width 13.4 % (11.5-14.5); Segmented Neutrophils % 85.2 %; White Blood Count 12.5 K/mcL (4.3-11.1)
[2021-07-09 10:54] LABS: BUN/Creatinine Ratio 33 (6-26); Blood Urea Nitrogen 12 mg/dL (8-23); C-Reactive Protein 14 mg/L (Less than 10); Calcium 9.3 mg/dL (8.6-10.3); Carbon Dioxide 27 mEq/L (23-29); Chloride 97 mEq/L (98-107); Glucose 115 mg/dL (70-105); Osmolality,Calculated 279 (280-300); Potassium 3.2 mEq/L (3.5-5.1); Sodium 134 mEq/L (136-145); eGFR For African Americans > 60 (> 60); eGFR For Non-African Americans > 60 (> 60)
[2021-07-09] MEDS ORDERED: *HR* HYDROmorphone 2 MG/ML SYRINGE IVP ONE (11:39)
[2021-07-09] MEDS ORDERED: Ibuprofen 400 MG TABLET PO PRN (12:15)
[2021-07-09] MEDS ORDERED: Ondansetron ODT 4 MG TAB.RAPDIS SL PRN ×2 (12:15→22:44)
[2021-07-09] MEDS ORDERED: Melatonin 3 MG TABLET PO PRN ×2 (12:15→22:44)
[2021-07-09] MEDS ORDERED: Mag Hydrox/Al Hydrox/Simeth 30 ML UDC PO PRN ×2 (12:15→22:44)
[2021-07-09] MEDS ORDERED: Naloxone 0.4 MG/ML INJ IVP PRN ×3 (12:15→22:44)
[2021-07-09] MEDS ORDERED: *HR* HYDROmorphone (PF) 1 MG/ML SYRINGE IVP PRN (12:17)
[2021-07-09] MEDS ORDERED: Famotidine 20 MG/2 ML VIAL IVP ONE ×3 (12:55→22:44)
[2021-07-09] MEDS ORDERED: Acetaminophen IV 1,000 MG/100 ML BAG IVPB ONE (13:30)
[2021-07-09] MEDS ORDERED: Heparin 1,000 UNITS/500 mL 500 ML ONE (14:37)
[2021-07-09] MEDS ORDERED: *HR* Propofol 200 MG/20 ML VIAL IVP ONE ×2 (15:06→19:16)
[2021-07-09] MEDS ORDERED: *HR* FentaNYL (PF) 100 MCG/2 ML VIAL ONE ×3 (15:06→19:00)
[2021-07-09] MEDS ORDERED: *HR* Rocuronium Bromide 50 MG/5 ML VIAL ONE ×2 (15:07→19:56)
[2021-07-09] MEDS ORDERED: Lidocaine -MPF 2% 5 ML VIAL ONE ×2 (15:07→15:38)
[2021-07-09] MEDS ORDERED: Lidocaine HCL 4 ML Topical Solution (Laryng-O-Jet Kit Sterile Pak) TP ONE (15:07)
[2021-07-09] MEDS ORDERED: Ondansetron 4 MG/2 ML VIAL ONE (15:07)
[2021-07-09] MEDS ORDERED: *HR* Etomidate 40 MG/20 ML VIAL IVP ONE (15:08)
[2021-07-09] MEDS ORDERED: EPHEDrine 50 MG/ML VIAL ONE (15:12)
[2021-07-09] MEDS ORDERED: Albumin Human 5% 12.5 GM/250 ML IV.SOLN ONE (15:16)
[2021-07-09] MEDS ORDERED: Povidone-Iodine 45 ML, Sodium Chloride IRRigation 1,000 ML IR ONE (15:30)
[2021-07-09] MEDS ORDERED: TOTAL JOINT MIXTURE (100ML) INTRAART ONE (15:30)
[2021-07-09] MEDS ORDERED: *HR* Phenylephrine 10 MG/ML VIAL ONE (15:30)
[2021-07-09] MEDS ORDERED: *HR* Remifentanil 1 MG VIAL IVP ONE ×2 (15:33→18:34)
[2021-07-09] MEDS ORDERED: Vancomycin 1,000 MG VIAL ONE (15:33)
[2021-07-09] MEDS ORDERED: *HR* Vasopressin 20 UNIT/ML VIAL ONE (15:37)
[2021-07-09] MEDS ORDERED: CeFAZolin Syr 2,000MG/20 ML 2,000 MG/20 ML SYRINGE IVPB ONE (15:43)
[2021-07-09] MEDS ORDERED: Ringers Solution, Lactated 1,000 ML IVC SCH (15:45)
[2021-07-09] MEDS ORDERED: Ethanol\\Acetic Acid\\Na Ace\\Ben 1,000 ML IRRIG.SOLN IR ONE (16:03)
[2021-07-09] MEDS ORDERED: Gentamicin 80 MG/2 ML VIAL IVPB ONE (16:13)
[2021-07-09] MEDS ORDERED: Gentamicin 300 MG in 0.9 % Sodium Chloride 100 ML IVPB ONE (16:30)
[2021-07-09] MEDS ORDERED: *HR* HYDROMORPHONE 2 MG/ML VIAL ONE ×2 (17:00→20:19)
[2021-07-09] MEDS ORDERED: Tranexamic Acid 1,000 MG/10 ML VIAL ONE ×2 (17:01→20:13)
[2021-07-09] MEDS ORDERED: *HR* HYDROmorphone PF 0.5 MG/0.5 ML SYRINGE IVP PRN ×2 (19:40→22:44)
[2021-07-09] MEDS ORDERED: Ondansetron 4 MG/2 ML VIAL IVP PRN ×2 (19:40→22:44)
[2021-07-09] MEDS ORDERED: Sugammadex Sodium 200 MG/2 ML VIAL IV ONE ×2 (20:26→20:32)
[2021-07-09] MEDS ORDERED: Gabapentin 300 MG CAPSULE PO SCH (21:00)
[2021-07-09 21:53] LABS: Hemoglobin 10.9 g/dL (11.5-15.4)
[2021-07-09] MEDS ORDERED: Fluorescein Sodium STRIP OP ONE (22:13)
[2021-07-09] MEDS ORDERED: *HR* Promethazine 25 MG/ML VIAL IM PRN (22:44)
[2021-07-09] MEDS ORDERED: MOM Conc 10 ML UD.LIQ PO PRN (22:44)
[2021-07-09] MEDS ORDERED: Sennosides 8.6 MG TABLET PO PRN (22:44)
[2021-07-10] MEDS: Ringers Solution, Lactated 1,000 ML IVC SCH ×3 (00:11→08:32)
[2021-07-10] MEDS: CeFAZolin 2 GM/120 ML BAG IVPB SCH ×4 (01:10→23:44)
[2021-07-10] MEDS: Multivit/Ca/Min/Fe/FA 1 TAB TABLET PO SCH (08:22)
[2021-07-10] MEDS: Gabapentin 300 MG CAPSULE PO SCH ×2 (08:23→21:14)
[2021-07-10] MEDS: Ascorbic Acid 500 MG TABLET PO SCH ×2 (08:23→16:06)
[2021-07-10] MEDS: *HR* OxyCODONE Immed Rel 5 MG TABLET PO PRN ×3 (08:23→23:44)
[2021-07-10 11:22] LABS: Hematocrit 29.6 % (35.3-44.9); Hemoglobin 9.7 g/dL (11.5-15.4); Mean Corpuscular HGB Conc 32.8 g/dL (31.6-35.5); Mean Corpuscular Hemoglobin 30.8 pg (28.0-33.3); Mean Platelet Volume 11.1 fL (9.4-12.4); Platelet Count 182 K/mcL (140-400); Red Blood Count 3.15 M/mcL (3.82-4.97); Red Cell Distribution Width 13.6 % (11.5-14.5); White Blood Count 13.1 K/mcL (4.3-11.1)
[2021-07-10 12:08] LABS: BUN/Creatinine Ratio 24 (6-26); Blood Urea Nitrogen 11 mg/dL (8-23); Calcium 8.4 mg/dL (8.6-10.3); Carbon Dioxide 26 mEq/L (23-29); Chloride 98 mEq/L (98-107); Glucose 113 mg/dL (70-105); Osmolality,Calculated 276 (280-300); Potassium 3.3 mEq/L (3.5-5.1); Sodium 133 mEq/L (136-145); eGFR For African Americans > 60 (> 60); eGFR For Non-African Americans > 60 (> 60)
[2021-07-10] MEDS: *HR* HYDROmorphone 2 MG/ML SYRINGE IVP PRN ×2 (16:06→21:16)
[2021-07-11 04:53] LABS: BUN/Creatinine Ratio 36 (6-26); Blood Urea Nitrogen 12 mg/dL (8-23); Carbon Dioxide 26 mEq/L (23-29); Chloride 100 mEq/L (98-107); Glucose 107 mg/dL (70-105); Magnesium 1.9 mg/dL (1.6-2.6); Osmolality,Calculated 278 (280-300); Potassium 3.6 mEq/L (3.5-5.1); Sodium 134 mEq/L (136-145); eGFR For African Americans > 60 (> 60); eGFR For Non-African Americans > 60 (> 60)
[2021-07-11] MEDS: *HR* HYDROmorphone 2 MG/ML SYRINGE IVP PRN ×4 (05:56→20:37)
[2021-07-11] MEDS: Ringers Solution, Lactated 1,000 ML IVC SCH ×3 (06:02→20:42)
[2021-07-11 07:17] LABS: Basophils % 0.2 %; Eosinophils % 0.2 %; Hematocrit 28.9 % (35.3-44.9); Immature Granulocytes % 0.9 % (0-4); Lymphocytes % 7.5 %; Mean Corpuscular HGB Conc 31.8 g/dL (31.6-35.5); Mean Corpuscular Hemoglobin 30.1 pg (28.0-33.3); Mean Corpuscular Volume 94.4 fL (83.0-100.0); Mean Platelet Volume 11.1 fL (9.4-12.4); Monocytes # 1.5 K/mcL (0.0-1.3); Monocytes % 10.8 %; Neutrophils # 11.2 K/mcL (1.6-8.9); Platelet Count 166 K/mcL (140-400); Red Blood Count 3.06 M/mcL (3.82-4.97); Red Cell Distribution Width 13.9 % (11.5-14.5); Segmented Neutrophils % 80.4 %; White Blood Count 13.9 K/mcL (4.3-11.1)
[2021-07-11 07:19] LABS: Hemoglobin 9.2 g/dL (11.5-15.4)
[2021-07-11] MEDS ORDERED: Cyanocobalamin (B-12) 1,000 MCG/ML VIAL SQ ONE (07:30)
[2021-07-11] MEDS ORDERED: Iron Sucrose Complex 250 MG in 0.9 % Sodium Chloride 250 ML IVPB ONE (07:31)
[2021-07-11] MEDS: CeFAZolin 2 GM/120 ML BAG IVPB SCH ×2 (07:40→16:27)
[2021-07-11] MEDS: Multivit/Ca/Min/Fe/FA 1 TAB TABLET PO SCH (07:41)
[2021-07-11] MEDS: Gabapentin 300 MG CAPSULE PO SCH ×2 (07:41→20:36)
[2021-07-11] MEDS: Ascorbic Acid 500 MG TABLET PO SCH ×2 (07:42→16:28)
[2021-07-11] MEDS: polyethylene glycoL 3350 17 GM POWD.PACK PO SCH (11:30)
[2021-07-11] MEDS: *HR* OxyCODONE Immed Rel 5 MG TABLET PO PRN (13:56)
[2021-07-12] MEDS: CeFAZolin 2 GM/120 ML BAG IVPB SCH ×4 (00:57→23:34)
[2021-07-12] MEDS: *HR* HYDROmorphone 2 MG/ML SYRINGE IVP PRN ×2 (01:58→22:55)
[2021-07-12 04:15] LABS: Basophils % 0.2 %; Eosinophils # 0.1 K/mcL (0.0-0.6); Eosinophils % 0.5 %; Hematocrit 26.6 % (35.3-44.9); Hemoglobin 8.6 g/dL (11.5-15.4); Immature Granulocytes % 0.9 % (0-4); Lymphocytes # 1.1 K/mcL (0.6-4.6); Lymphocytes % 8.4 %; Mean Corpuscular HGB Conc 32.3 g/dL (31.6-35.5); Mean Corpuscular Hemoglobin 30.1 pg (28.0-33.3); Mean Platelet Volume 11.4 fL (9.4-12.4); Monocytes # 1.4 K/mcL (0.0-1.3); Monocytes % 10.4 %; Neutrophils # 10.3 K/mcL (1.6-8.9); Platelet Count 153 K/mcL (140-400); Red Blood Count 2.86 M/mcL (3.82-4.97); Red Cell Distribution Width 13.7 % (11.5-14.5); Segmented Neutrophils % 79.6 %; White Blood Count 12.9 K/mcL (4.3-11.1)
[2021-07-12] MEDS: *HR* OxyCODONE Immed Rel 5 MG TABLET PO PRN ×4 (04:19→20:38)
[2021-07-12 04:30] LABS: BUN/Creatinine Ratio 23 (6-26); Blood Urea Nitrogen 9 mg/dL (8-23); Calcium 8.2 mg/dL (8.6-10.3); Carbon Dioxide 33 mEq/L (23-29); Chloride 94 mEq/L (98-107); Glucose 115 mg/dL (70-105); Magnesium 1.8 mg/dL (1.6-2.6); Osmolality,Calculated 274 (280-300); Potassium 2.9 mEq/L (3.5-5.1); Sodium 132 mEq/L (136-145); eGFR For African Americans > 60 (> 60); eGFR For Non-African Americans > 60 (> 60)
[2021-07-12] MEDS: Multivit/Ca/Min/Fe/FA 1 TAB TABLET PO SCH (08:56)
[2021-07-12] MEDS: Ascorbic Acid 500 MG TABLET PO SCH ×2 (08:56→17:03)
[2021-07-12] MEDS: Gabapentin 300 MG CAPSULE PO SCH ×2 (08:57→20:39)
[2021-07-12] MEDS: polyethylene glycoL 3350 17 GM POWD.PACK PO SCH (08:57)
[2021-07-12] MEDS: Ringers Solution, Lactated 1,000 ML IVC SCH (20:37)
[2021-07-13 03:53] VITALS: O2SAT 100
[2021-07-13] MEDS: *HR* OxyCODONE Immed Rel 5 MG TABLET PO PRN ×3 (03:56→13:12)
[2021-07-13 05:55] LABS: Basophils % 0.2 %; Eosinophils # 0.2 K/mcL (0.0-0.6); Eosinophils % 1.9 %; Hematocrit 30.1 % (35.3-44.9); Hemoglobin 9.8 g/dL (11.5-15.4); Immature Granulocytes % 0.7 % (0-4); Immature Platelets 12.6 % (1.1-6.1); Lymphocytes # 1.4 K/mcL (0.6-4.6); Lymphocytes % 12.2 %; Mean Corpuscular HGB Conc 32.6 g/dL (31.6-35.5); Mean Corpuscular Hemoglobin 30.5 pg (28.0-33.3); Mean Corpuscular Volume 93.8 fL (83.0-100.0); Mean Platelet Volume 12.1 fL (9.4-12.4); Monocytes # 0.8 K/mcL (0.0-1.3); Neutrophils # 9.1 K/mcL (1.6-8.9); Platelet Count 168 K/mcL (140-400); Red Blood Count 3.21 M/mcL (3.82-4.97); Red Cell Distribution Width 13.8 % (11.5-14.5); White Blood Count 11.6 K/mcL (4.3-11.1)
[2021-07-13 06:19] LABS: BUN/Creatinine Ratio 21 (6-26); Blood Urea Nitrogen 7 mg/dL (8-23); Carbon Dioxide 34 mEq/L (23-29); Chloride 96 mEq/L (98-107); Glucose 103 mg/dL (70-105); Magnesium 2.1 mg/dL (1.6-2.6); Osmolality,Calculated 276 (280-300); Potassium 3.9 mEq/L (3.5-5.1); Sodium 134 mEq/L (136-145); eGFR For African Americans > 60 (> 60); eGFR For Non-African Americans > 60 (> 60)
[2021-07-13 06:23] LABS: Platelet Estimate Normal (Normal)
[2021-07-13] MEDS: Gabapentin 300 MG CAPSULE PO SCH (08:46)
[2021-07-13] MEDS: Ascorbic Acid 500 MG TABLET PO SCH ×2 (08:46→16:29)
[2021-07-13] MEDS: polyethylene glycoL 3350 17 GM POWD.PACK PO SCH (08:47)
[2021-07-13] MEDS: CeFAZolin 2 GM/120 ML BAG IVPB SCH ×2 (08:47→16:25)
[2021-07-13] MEDS: Multivit/Ca/Min/Fe/FA 1 TAB TABLET PO SCH (08:47)
[2021-07-13 09:12] VITALS: BP 147/72; PULSE 90; TEMP 99.4
[2021-07-13 11:30] LABS: Influenza A PCR Negative (Negative); Influenza B PCR Negative (Negative); Resp. Syncytial Virus PCR Negative (Negative); SARS-CoV-2 by PCR (In House) Negative (Negative)
[2021-07-13] MEDS ORDERED: 0.9 % Sodium Chloride 1,000 ML IVC SCH (12:00)
== END 2021-07-13 19:00 | DRG 466 ==
LOC: 4WAOSI 08:49 → EMEROOARM 08:49 → SUATTDRO 12:14 → 4WAOSI 15:24
PROVIDERS: ADMIT Family Medicine; ATTEND Pharmacist